=== PATIENT | female | born 1960 | race Caucasian/White ===

== ENCOUNTER 2017-03-01 14:02 | Emergency (ER) | payer BC, OTHER ==
[~2017-03-01] VITALS: Ht 157.5 cm; Wt 53.0 kg
[2017-03-01 14:18] VITALS: Ht 157.5 cm; Wt 53.0 kg
[2017-03-01] MEDS ORDERED: SERT-165 PO (15:03)
[2017-03-01] MEDS ORDERED: DIAZ-90 PO (15:03)
[2017-03-01] MEDS ORDERED: ALPRAZOLAM 0.25 MG TAB PO ONE (15:30)
--- NOTE | 2017-03-01 15:51 | ERD ---
ER Documentation Chief Complaint Date/Time DATE: 03/01/17 TIME: 15:43 Chief Complaint sent by a psychiatrist has severe depression and anxiety HPI This 56-year-old female comes emergency room because she was told that a clinic , not by psychiatrist that she should come to the emergency room for evaluation for depression. She states they do not speak Bulgarian well. She says that she got an argument with her yesterday and she is feeling very bad about it. She requests a refill of the medications diazepam, Flexeril, sertraline. States that she feels very sad because she loves him. She absolutely denies that she would ever harm herself or try to kill herself. She denies wanting to harm anyone else. She has for medications to help her deal with this problem. She has no physical complaints. She has no shortness of breath, no chest pain, no headache. ROS All systems reviewed and are negative except as per history of present illness. Medications Home Meds Active Scripts Sertraline Hcl* (Sertraline Hcl*) 100 Mg Tablet, 100 MG PO DAILY, #30 TAB Prov:ROC LR DO 03/01/17 Diazepam* (Valium*) 5 Mg Tablet, 5 MG PO Q8 Y for ANXIETY, #8 TAB Prov:ROC LR DO 03/01/17 Allergies Allergies: Coded Allergies: No Known Allergy (Unverified , 03/01/17) PMhx/Soc Medical and Surgical Hx: pt denies Medical Hx, pt denies Surgical Hx Hx Alcohol Use: No Hx Substance Use: No Smoking Status: Never smoker Physical Exam Vitals Vital Signs Date Time Temp Pulse Resp B/P Pulse Ox O2 Delivery O2 Flow Rate FiO2 03/01/17 14:18 98.2 66 18 136/79 97 Physical Exam Const: [] No distress, sitting in chair, calm, conversant Head: Atraumatic Eyes: Normal Conjunctiva, EOMI, PERRL ENT: Normal External Ears, Nose and Mouth. Resp: Clear to auscultation bilaterally Cardio: Regular rate and rhythm, no murmurs Skin: No petechiae or rashes Ext: No cyanosis, or edema Neur: Awake and alert and oriented 3, no focal deficit Psych: Mildly anxious. Results 24 hrs Current Medications Medications (Trade) Dose Ordered Sig/Aura Route PRN Reason Start Time Stop Time Status Last Admin Dose Admin Alprazolam (Xanax) 0.25 mg ONCE ONCE PO 03/01/17 15:30 03/01/17 15:31 DC 03/01/17 15:16 Procedures/MDM 56-year-old female suffering adjustment disorder feeling depressed after an argument with her . She states she does feel safe at home and she wants to be with her was not physically harmed her in any way. She does have pill bottles and requests a refill. Do not see that she needs any Flexeril right now she denies any muscle pain or tenderness. I am going to give her a few Valium tablets of 5 mg as well as a month of Zoloft. States that she does have insurance through her . Is to be safe I am having registration talk with her about signing up for [employer]. States that she feels safe going home if she has her medications. I gave her a 0.25 mg Xanax in the emergency room. No signs of physical distress. She does not want to be admitted and go to any psychiatric facility. Discharging with primary care follow-up on Saturday and return precautions to ER if she feels any thoughts of harming herself or others. Departure Diagnosis: Primary Impression: Adjustment disorder with depressed mood Condition: Stable Patient Instructions: Understanding Adjustment Disorders Referrals: [facility] YOU HAVE RECEIVED A MEDICAL SCREENING EXAM AND THE RESULTS INDICATE THAT YOU DO NOT HAVE A CONDITION THAT REQUIRES URGENT TREATMENT IN THE EMERGENCY DEPARTMENT. FURTHER EVALUATION AND TREATMENT OF YOUR CONDITION CAN WAIT UNTIL YOU ARE SEEN IN YOUR DOCTORS OFFICE WITHIN THE NEXT 1-2 DAYS. IT IS YOUR RESPONSIBILITY TO MAKE AN APPOINTMENT FOR FOLOW-UP CARE. IF YOU HAVE A PRIMARY DOCTOR --you should call your primary doctor and schedule an appointment IF YOU DO NOT HAVE A PRIMARY DOCTOR YOU CAN CALL OUR PHYSICIAN REFERRAL HOTLINE AT IF YOU CAN NOT AFFORD TO SEE A PHYSICIAN YOU CAN CHOSE FROM THE FOLLOWING [facility] [id number] [facility] [address] [facility] [address] [facility] [address] [facility] [address] [facility]. [facility] [address] Additional Instructions: Llame al doctor EL LUNES y marc nehemiah SONNY PARA DENTRO DE 2-3 DANIEL.Dgale a la secretaria que nosotros le instruimos hacer esta sonny.Avise o llame si oakes condicin se empeora antes de la sonny. Regresa aqui si peor o no mejor. ROC LR DO Mar 01, 2017 15:51
== END 2017-03-01 16:03 | disposition home or self-care (01) ==
LOC: E/R 14:02
DX: F43.21 Adjustment disorder with depressed mood (principal)
CPT/HCPCS: 99284